=== PATIENT | male | born 1950 | race Caucasian/White ===

== ENCOUNTER 2019-06-25 17:53 | Emergency (ER) | payer OTHER ==
[2019-06-25] MEDS ORDERED: Sodium Chloride 0.9% 10 ML Syringe FLUSH PRN (18:22)
--- NOTE | 2019-06-25 18:22 | EDM.PDOC ---
ED HPI GENERAL MEDICAL PROBLEM - General Chief Complaint: Chest Pain Stated Complaint: CHEST PAIN Time Seen by Provider: 06/25/19 18:10 Source of Information: Reports: Patient History Limitations: Reports: No Limitations - History of Present Illness INITIAL COMMENTS - FREE TEXT/NARRATIVE: Patient presents to the ED for evaluation of chest pain. He states he has had a fever intermittently with near constant chest pain for the past 4 days. He states the chest pain waxes and wanes but never goes away completely. He states it got worse this afternoon with some shortness of breath at about 2:30. He went outside and felt as though it was easier to breath outside. His pain was worse at that time as well. He states he has had a fever the past few days too but did not measure his temperature with a thermometer. He was prescribed a medication for his blood pressure and was taking it until May when he ran out and has not refilled the medication. He thinks he was taking losarten. He denies cough, nausea, or vomiting. He denies recent travel or ill contacts. Denies smoking, last consumed ETOH on . Currently being treated for H. pylori and his primary care provider is at the [facility] in [place]. Onset Date: 06/22/19 Onset Time: 08:00 Duration: Getting Worse Location: Reports: Chest Quality: Reports: Ache Severity: Moderate Improves with: Reports: None Worsens with: Reports: None Associated Symptoms: Reports: Chest Pain, Fever/Chills, Shortness of Breath. Denies: Cough, Diaphoresis, Headaches, Nausea/Vomiting, Weakness Upper Chest Pain Score (Numeric/FACES): 2 - Related Data Allergies Allergy/AdvReac Type Severity Reaction Status Date / Time No Known Allergies Allergy Verified 01/29/13 15:56 Home Meds: Home Meds Aspirin [Halfprin] 81 mg PO DAILY 01/29/13 [History] Losartan [Cozaar] 50 mg PO DAILY 06/25/19 [History] atorvaSTATin [Lipitor] 20 mg PO DAILY 06/25/19 [History] ED ROS GENERAL - Review of Systems Review Of Systems: Comprehensive ROS is negative, except as noted in HPI. ED EXAM, GENERAL - Physical Exam Exam: See Below Exam Limited By: No Limitations General Appearance: Alert, WD/WN, Anxious, Mild Distress, Obese Eye Exam: Bilateral Eye: PERRL Ears: Normal External Exam Nose: Normal Inspection Throat/Mouth: Normal Inspection, Normal Oropharynx Head: Atraumatic, Normocephalic Neck: Normal Inspection, Supple, Non-Tender, Full Range of Motion Respiratory/Chest: No Respiratory Distress, Lungs Clear, Normal Breath Sounds, No Accessory Muscle Use Cardiovascular: Regular Rate, Rhythm Extremities: Normal Range of Motion, Normal Capillary Refill Neurological: Alert, Oriented Psychiatric: Normal Affect, Normal Mood Skin Exam: Warm, Dry, Intact EKG INTERPRETATION EKG Date: 06/25/19 Time: 18:06 Rhythm: NSR Rate (Beats/Min): 94 [place]: Normal P-Wave: Present QRS: Normal ST-T: Normal QT: Normal Comparison: NA - No Prior EKG Course - Vital Signs Last Recorded V/S: Last Vital Signs Temp 36.6 C 06/25/19 19:18 Pulse 76 06/25/19 19:18 Resp 20 06/25/19 19:18 BP 161/99 H 06/25/19 19:24 Pulse Ox 96 06/25/19 19:18 - Orders/Labs/Meds Orders: Active Orders 24 hr Category Date Time Status EKG Documentation Completion [RC] ASDIRECTED Care 06/25/19 18:23 Active Aspirin Med 06/25/19 18:30 Active 162 mg PO DAILY Sodium Chloride 0.9% [Saline Flush] Med 06/25/19 18:22 Active 10 ml FLUSH ASDIRECTED PRN Saline Lock Insert [OM.PC] Stat Oth 06/25/19 18:22 Ordered Medication Orders Aspirin (Aspirin) 162 mg PO DAILY [facility] Last Admin: 06/25/19 18:14 Dose: 162 mg Sodium Chloride (Saline Flush) 10 ml FLUSH ASDIRECTED PRN PRN Reason: Keep Vein Open Last Admin: 06/25/19 19:25 Dose: 10 ml Labs: Laboratory Tests 06/25/19 06/25/19 Range/Units 18:22 18:22 WBC 10.3 (4.0-11.0) K/uL RBC 5.05 (4.50-6.50) M/uL Hgb 15.3 (13.0-18.0) g/dL Hct 43.3 (40.0-54.0) % MCV 86 (76-96) fL MCH 30.3 (27.0-32.0) pg MCHC 35.3 H (31.0-35.0) g/dL RDW 13.0 (11.0-16.0) % Plt Count 200 (150-400) K/uL MPV 9.6 (6.0-10.0) fL Neut % (Auto) 68.1 (45.0-70.0) % Lymph % (Auto) 22.9 (20.0-40.0) % [place] % (Auto) 8.4 (3.0-10.0) % Eos % (Auto) 0.3 L (1.0-5.0) % Baso % (Auto) 0.3 (0.0-0.5) % Neut # (Auto) 6.99 (2.00-7.50) K/uL Lymph # (Auto) 2.35 (1.50-4.00) K/uL [place] # (Auto) 0.86 H (0.20-0.80) K/uL Eos # (Auto) 0.03 L (0.04-0.40) K/uL Baso # (Auto) 0.03 (0.02-0.10) K/uL Sodium 137 (136-145) mmol/L Potassium 3.4 L (3.5-5.1) mmol/L Chloride 100 (98-107) mmol/L Carbon Dioxide 26.0 (21.0-32.0) mmol/L Anion Gap 14.4 (5.0-15.0) mmol/L BUN 13 (8-26) mg/dL Creatinine 0.88 (0.70-1.30) mg/dL Est Cr Clr Drug Dosing TNP Estimated GFR (MDRD) > 60 (>60) MLS/MIN BUN/Creatinine Ratio 14.8 (6-25) Glucose 103 H (74-100) mg/dL Calcium 9.2 (8.5-10.1) mg/dL Troponin I < 0.017 (0.000-0.060) ng/mL Meds: Medications Generic Name Dose Route Start Last Admin Trade Name Freq PRN Reason Stop Dose Admin Aspirin 162 mg 06/25/19 18:30 06/25/19 18:14 Aspirin PO 162 mg DAILY HIWOT Administration Sodium Chloride 10 ml 06/25/19 18:22 06/25/19 19:25 Saline Flush FLUSH 10 ml ASDIRECTED PRN Administration Keep Vein Open Discontinued Medications Generic Name Dose Route Start Last Admin Trade Name Juliet PRN Reason Stop Dose Admin Labetalol HCl 20 mg 06/25/19 19:00 06/25/19 19:00 Normodyne IVPUSH 06/25/19 19:01 20 mg ONETIME ONE Administration Protocol Nitroglycerin 0.4 mg 06/25/19 18:24 06/25/19 18:14 Nitrostat SL 06/25/19 18:25 0.4 mg ONETIME ONE Administration - Re-Assessments/Exams Free Text/Narrative Re-Assessment/Exam: 06/25/19 19:28 This patient presented with chest pain with greater than 8 hours duration. Initial laboratory and imaging tests have come back normal without progression of symptoms or other new concerning symptoms. He is very hypertensive and did have some response to labetalol while in the ED. There is no clinical, laboratory, or radiographic evidence of pulmonary embolism, aortic dissection, pneumonia, pneumothorax or cardiac ischemia. Other etiologies of chest pain could include chest wall source, esophageal spasm or GI source, pleuritis, referred pain, etc. I have no suspicion of unstable angina at this point and would therefore not admit nor administer heparin. I discussed the need for a stress test and he states he will discuss this with his PCP at the [facility] in [place]. I am also going to restart his losartan. He will be given 3-25 mg tablets to use over the weekend with a paper prescription to be filled on Friday. The patient agrees with the plan and all questions were answered. Departure - Departure Time of Disposition: 19:50 Disposition: Home, Self-Care 01 Condition: Good Clinical Impression: Hypertension, Chest pain Instructions: Nonspecific Chest Pain, Adult, [id number] Forms: ED Department Discharge Additional Instructions: Begin taking provided Losartan as instructed: 1 tablet by mouth daily, beginning on June 25. Fill written prescription for additional Losartan at your regular pharmacy on Friday as well and continue taking as prescribed. Follow up with regular provider when able and ask for stress test to be scheduled. Monitor blood pressure once daily at home and bring readings to your regular appointment with regular provider. Call with any questions. Sepsis Event Note - Focused Exam Vital Signs: Vital Signs Temp Pulse Resp BP BP Pulse Ox 06/25/19 19:24 161/99 H 06/25/19 19:18 36.6 C 76 20 162/105 H 96 06/25/19 18:14 217/123 H 06/25/19 18:05 36.6 C 88 20 207/131 H 96 Date Exam was Performed: 06/25/19 Time Exam was Performed: 20:12 - My Orders Last 24 Hours: My Active Orders 06/25/19 18:22 Sodium Chloride 0.9% [Saline Flush] 10 ml FLUSH ASDIRECTED PRN Saline Lock Insert [OM.PC] Stat 06/25/19 18:23 EKG Documentation Completion [RC] ASDIRECTED 06/25/19 18:30 Aspirin 162 mg PO DAILY - Assessment/Plan Last 24 Hours: My Active Orders 06/25/19 18:22 Sodium Chloride 0.9% [Saline Flush] 10 ml FLUSH ASDIRECTED PRN Saline Lock Insert [OM.PC] Stat 06/25/19 18:23 EKG Documentation Completion [RC] ASDIRECTED 06/25/19 18:30 Aspirin 162 mg PO DAILY
[2019-06-25] MEDS ORDERED: Nitroglycerin 0.4 MG Tab.SL SL ONE (18:24)
[2019-06-25] MEDS ORDERED: Aspirin 81 MG Tab.Chew PO SCH (18:30)
[2019-06-25] MEDS ORDERED: Labetalol 100 MG/20 ML MDV IVPUSH ONE (19:00)
[2019-06-25 20:35] VITALS: BP 155/98; PULSE 74
== END 2019-06-25 19:54 | disposition home or self-care (01) ==
LOC: LB.ED 17:53
DX: R07.9 Chest pain, unspecified (principal); I10 Essential (primary) hypertension; Z79.82 Long term (current) use of aspirin; Z79.899 Other long term (current) drug therapy
CPT/HCPCS: 36415; 80048; 84484; 85025; 93005; 96374; 99284; 99285; A9270; J3490

== ENCOUNTER 2020-03-25 12:42 | Emergency (ER) | payer OTHER ==
[2020-03-25] MEDS ORDERED: GI Cocktail Oral Solution 30 ML PO ONE (13:08)
--- NOTE | 2020-03-25 13:21 | EDM.PDOC ---
ED HPI GENERAL MEDICAL PROBLEM - General Chief Complaint: Abdominal Pain Stated Complaint: stomach pain Time Seen by Provider: 03/25/20 13:10 Source of Information: Reports: Patient History Limitations: Reports: No Limitations - History of Present Illness INITIAL COMMENTS - FREE TEXT/NARRATIVE: patient presented to the ER with a c/o epigastric discomfort for several days. has been persistent for 2 days. Non radiating and not related to food or activities. h/o recent diagnosis of H.Pylori for which he was treated with Abx and PPI. Denies N/V or GI symptoms. Discomfort is 4-5/10. Has been taking Pepto-bismuth but no changes of symptoms. Also admits that he has been taking Ibuprofen for pain but it hasn't helped. No cough, SOB or CP. reports that he recently underwent a stress test in Jan - was negative for cardiac problems no h/o gall bladder stones. Has normal BMs. Good appetite to food Denies ETOH consumption - Related Data Allergies Allergy/AdvReac Type Severity Reaction Status Date / Time No Known Allergies Allergy Verified 01/29/13 15:56 Home Meds: Home Meds Aspirin [Halfprin] 81 mg PO DAILY 01/29/13 [History] Losartan [Cozaar] 50 mg PO DAILY 06/25/19 [History] atorvaSTATin [Lipitor] 20 mg PO DAILY 06/25/19 [History] Pantoprazole [ProTONIX Granules] 40 mg PO DAILY #28 packet 03/25/20 [Rx] Past Medical History - Past Health History Medical/Surgical History: Denies Medical/Surgical History HEENT History: Reports: Cataract Gastrointestinal History: Reports: Other (See Below) Other Gastrointestinal History: Testing for H pylori at [place], history of nausea in am's - Infectious Disease History Infectious Disease History: Reports: Chicken Pox, Measles, Mumps Social & Family History - Caffeine Use Caffeine Use: Reports: Coffee ED ROS GENERAL - Review of Systems Review Of Systems: Comprehensive ROS is negative, except as noted in HPI. Constitutional: Reports: No Symptoms HEENT: Reports: No Symptoms Respiratory: Reports: No Symptoms Cardiovascular: Reports: No Symptoms Endocrine: Reports: No Symptoms GI/Abdominal: Reports: Abdominal Pain. Denies: Anorexia, Decreased Appetite Musculoskeletal: Reports: No Symptoms Skin: Reports: No Symptoms Neurological: Reports: No Symptoms Psychiatric: Reports: No Symptoms ED EXAM, GI/ABD - Physical Exam Exam: See Below Exam Limited By: No Limitations General Appearance: Alert, WD/WN, No Apparent Distress Eyes: Bilateral: Normal Appearance Respiratory/Chest: No Respiratory Distress, Lungs Clear, Normal Breath Sounds Cardiovascular: Normal Peripheral Pulses GI/Abdominal Exam: Normal Bowel Sounds, Soft, No Distention, Tender (mild epigastric ) Back Exam: Normal Inspection Extremities: Normal Inspection Course - Orders/Labs/Meds Orders: Active Orders 24 hr Category Date Time Status EKG Documentation Completion [RC] ASDIRECTED Care 03/25/20 13:08 Active Labs: Laboratory Tests 03/25/20 03/25/20 Range/Units 13:20 13:20 WBC 10.5 (4.0-11.0) K/uL RBC 4.89 (4.50-6.50) M/uL Hgb 14.9 (13.0-18.0) g/dL Hct 42.8 (40.0-54.0) % MCV 88 (76-96) fL MCH 30.5 (27.0-32.0) pg MCHC 34.8 (31.0-35.0) g/dL RDW 13.2 (11.0-16.0) % Plt Count 220 (150-400) K/uL MPV 9.3 (6.0-10.0) fL Neut % (Auto) 67.8 (45.0-70.0) % Lymph % (Auto) 24.9 (20.0-40.0) % [place] % (Auto) 6.5 (3.0-10.0) % Eos % (Auto) 0.5 L (1.0-5.0) % Baso % (Auto) 0.3 (0.0-0.5) % Neut # (Auto) 7.15 (2.00-7.50) K/uL Lymph # (Auto) 2.62 (1.50-4.00) K/uL [place] # (Auto) 0.69 (0.20-0.80) K/uL Eos # (Auto) 0.05 (0.04-0.40) K/uL Baso # (Auto) 0.03 (0.02-0.10) K/uL Sodium 141 (136-145) mmol/L Potassium 3.3 L (3.5-5.1) mmol/L Chloride 103 (98-107) mmol/L Carbon Dioxide 28.6 (21.0-32.0) mmol/L Anion Gap 12.7 (5.0-15.0) mmol/L BUN 10 D (8-26) mg/dL Creatinine 1.00 (0.70-1.30) mg/dL Est Cr Clr Drug Dosing 73.00 mL/min Estimated GFR (MDRD) > 60 (>60) MLS/MIN BUN/Creatinine Ratio 10.0 (6-25) Glucose 129 H (74-100) mg/dL Calcium 8.8 (8.5-10.1) mg/dL Total Bilirubin 0.8 (0.0-1.0) mg/dL AST 20 (15-37) U/L ALT 36 (12-78) U/L Alkaline Phosphatase 104 (46-116) U/L Troponin I 0.018 (0.000-0.060) ng/mL Total Protein 7.0 (6.4-8.2) g/dL Albumin 3.9 (3.4-5.0) g/dL Globulin 3.1 (2.2-4.2) g/dL Albumin/Globulin Ratio 1.3 (0.8-2.0) Lipase 147 (73-393) U/L Meds: Medications Discontinued Medications Generic Name Dose Route Start Last Admin Trade Name Freq PRN Reason Stop Dose Admin Al Hydroxide/Mg Hydroxide 30 ml 03/25/20 13:08 03/25/20 13:45 Gi Cocktail PO 03/25/20 13:09 30 ml ONETIME ONE Administration - Re-Assessments/Exams Free Text/Narrative Re-Assessment/Exam: 03/25/20 13:57 EKG WNL labs - no e/o leukocytosis and normal liver function, but mild hypokalemia GI cocktail was given with significant improvement in symptoms Departure - Departure Time of Disposition: 13:58 Disposition: Home, Self-Care 01 Condition: Good Clinical Impression: Peptic ulcer, Hypokalemia - Discharge Information *PRESCRIPTION DRUG MONITORING PROGRAM REVIEWED*: Not Applicable *COPY OF PRESCRIPTION DRUG MONITORING REPORT IN PATIENT MATTY: Not Applicable Prescriptions: Pantoprazole [ProTONIX Granules] 40 mg PO DAILY #28 packet Forms: ED Department Discharge Additional Instructions: - recommend to stop taking NSAIDs/ Ibuprofen for now - take omeprazole as prescribed - follow up with the PCP next week as needed - return to the ER if symptoms got worse or any concerns - My Orders Last 24 Hours: My Active Orders 03/25/20 13:08 EKG Documentation Completion [RC] ASDIRECTED - Assessment/Plan Last 24 Hours: My Active Orders 03/25/20 13:08 EKG Documentation Completion [RC] ASDIRECTED
[2020-03-25 14:05] VITALS: BP 150/73; PULSE 96
== END 2020-03-25 14:30 | disposition home or self-care (01) ==
LOC: LB.ED 12:42
DX: K27.9 Peptic ulcer, site unspecified, unspecified as acute or chronic, without hemorrhage or perforation (principal); E87.6 Hypokalemia
CPT/HCPCS: 36415; 80053; 83690; 84484; 85025; 93005; 99283; 99284-25; A9270-GY

== ENCOUNTER 2020-07-09 16:15 | Emergency (ER) | payer OTHER ==
[2020-07-09] MEDS ORDERED: GI Cocktail Oral Solution 30 ML PO ONE (16:20)
--- NOTE | 2020-07-09 16:41 | EDM.PDOC ---
ED HPI GENERAL MEDICAL PROBLEM - General Chief Complaint: Gastrointestinal Problem Stated Complaint: EPIGASTRIC PAIN Time Seen by Provider: 07/09/20 16:20 Source of Information: Reports: Patient, RN History Limitations: Reports: No Limitations - History of Present Illness INITIAL COMMENTS - FREE TEXT/NARRATIVE: 69 year old male with PMH HTN, hyperlipidemia, Hpylori presents with epigastric and RUQ pain (that does not radiate)that has been ongoing for several months. Was in clinic last week and told to use maalox for the pain, he went to the pharmacy and has been taking an equivalent without relief. The pain increases about 1 hour after eating anything. Denies any CP, SOB, back pain, urinary issues, fever, or rashes. - Related Data Allergies Allergy/AdvReac Type Severity Reaction Status Date / Time No Known Allergies Allergy Verified 01/29/13 15:56 Home Meds: Home Meds Aspirin [Halfprin] 81 mg PO DAILY 01/29/13 [History] Losartan [Cozaar] 50 mg PO DAILY 06/25/19 [History] atorvaSTATin [Lipitor] 20 mg PO DAILY 06/25/19 [History] Pantoprazole [ProTONIX Granules] 40 mg PO DAILY #28 packet 03/25/20 [Rx] Past Medical History - Past Health History Medical/Surgical History: Denies Medical/Surgical History HEENT History: Reports: Cataract Gastrointestinal History: Reports: Other (See Below) Other Gastrointestinal History: Testing for H pylori at [place], history of nausea in am's - Infectious Disease History Infectious Disease History: Reports: Chicken Pox, Measles, Mumps Social & Family History - Family History Family Medical History: No Pertinent Family History - Caffeine Use Caffeine Use: Reports: Tea ED ROS GENERAL - Review of Systems Review Of Systems: Comprehensive ROS is negative, except as noted in HPI. ED EXAM, GI/ABD - Physical Exam Exam: See Below Exam Limited By: No Limitations General Appearance: Alert, No Apparent Distress Eyes: Bilateral: Normal Appearance Ears: Normal External Exam, Hearing Grossly Normal Nose: Normal Inspection, No Blood Throat/Mouth: Normal Inspection, Normal Lips, Normal Voice Head: Atraumatic Neck: Normal Inspection, Non-Tender, Full Range of Motion Respiratory/Chest: No Respiratory Distress, Lungs Clear, Normal Breath Sounds, No Accessory Muscle Use, Chest Non-Tender Cardiovascular: Normal Peripheral Pulses, Regular Rate, Rhythm, No Edema, No JVD, No Murmur GI/Abdominal Exam: Normal Bowel Sounds, Soft, Tender (Male) Exam: Deferred Rectal (Males) Exam: Deferred Back Exam: Normal Inspection, Full Range of Motion Extremities: Normal Inspection, Normal Range of Motion, Non-Tender, Normal Capillary Refill Neurological: Alert, Oriented, Normal Cognition, Normal Gait, No Motor/Sensory Deficits Psychiatric: Normal Affect, Normal Mood Skin Exam: Warm, Dry, Intact, Normal Color, No Rash Lymphatic: No Adenopathy Course - Orders/Labs/Meds Orders: Active Orders 24 hr Category Date Time Status EKG Documentation Completion [RC] ASDIRECTED Care 07/09/20 16:36 Active Abdomen Pelvis w Cont [CT] Stat Exams 07/09/20 16:35 Taken Iopamidol [Isovue-300 (61%)] Med 07/09/20 17:15 Active 100 ml IV . DIRECTED EKG 12 Lead [EK] Routine Ther 07/09/20 16:35 Ordered Medication Orders Iopamidol (Iopamidol 612 Mg/Ml 100 Ml Bottle) 100 ml IV . DIRECTED HIWOT Last Admin: 07/09/20 17:40 Dose: 100 ml Documented by: RENEA Labs: Laboratory Tests 07/09/20 07/09/20 07/09/20 Range/Units 16:50 16:50 16:50 WBC 9.8 (4.0-11.0) K/uL RBC 5.00 (4.50-6.50) M/uL Hgb 15.3 (13.0-18.0) g/dL Hct 43.2 (40.0-54.0) % MCV 86 (76-96) fL MCH 30.6 (27.0-32.0) pg MCHC 35.4 H (31.0-35.0) g/dL RDW 13.0 (11.0-16.0) % Plt Count 220 (150-400) K/uL MPV 9.2 (6.0-10.0) fL Neut % (Auto) 65.4 (45.0-70.0) % Lymph % (Auto) 26.2 (20.0-40.0) % [place] % (Auto) 7.7 (3.0-10.0) % Eos % (Auto) 0.5 L (1.0-5.0) % Baso % (Auto) 0.2 (0.0-0.5) % Neut # (Auto) 6.38 (2.00-7.50) K/uL Lymph # (Auto) 2.56 (1.50-4.00) K/uL [place] # (Auto) 0.75 (0.20-0.80) K/uL Eos # (Auto) 0.05 (0.04-0.40) K/uL Baso # (Auto) 0.02 (0.02-0.10) K/uL Sodium 139 (136-145) mmol/L Potassium 3.6 (3.5-5.1) mmol/L Chloride 100 (98-107) mmol/L Carbon Dioxide 29.6 (21.0-32.0) mmol/L Anion Gap 13.0 (5.0-15.0) mmol/L BUN 6 L D (8-26) mg/dL Creatinine 0.98 (0.70-1.30) mg/dL Est Cr Clr Drug Dosing TNP Estimated GFR (MDRD) > 60 (>60) MLS/MIN BUN/Creatinine Ratio 6.1 (6-25) Glucose 111 H (74-100) mg/dL Calcium 9.5 (8.5-10.1) mg/dL Total Bilirubin 1.3 H D (0.0-1.0) mg/dL AST 23 (15-37) U/L ALT 34 (12-78) U/L Alkaline Phosphatase 126 H (46-116) U/L Troponin I < 0.017 (0.000-0.060) ng/mL Total Protein 7.7 (6.4-8.2) g/dL Albumin 4.2 (3.4-5.0) g/dL Globulin 3.5 (2.2-4.2) g/dL Albumin/Globulin Ratio 1.2 (0.8-2.0) Lipase 97 D (73-393) U/L Meds: Medications Generic Name Dose Route Start Last Admin Trade Name Freq PRN Reason Stop Dose Admin Iopamidol 100 ml 07/09/20 17:15 07/09/20 17:40 Iopamidol 612 Mg/Ml 100 Ml Bottle IV 100 ml . DIRECTED HIWOT Administration Discontinued Medications Generic Name Dose Route Start Last Admin Trade Name Freq PRN Reason Stop Dose Admin Sodium Chloride 50 ml 07/09/20 17:14 07/09/20 17:40 Sodium Chloride 0.9% 50 Ml Sdv FLUSH 07/09/20 17:15 50 ml ONETIME ONE Administration Departure - Departure Time of Disposition: 18:25 Disposition: 20 Condition: Good Clinical Impression: Epigastric abdominal pain of unknown etiology - Discharge Information *PRESCRIPTION DRUG MONITORING PROGRAM REVIEWED*: Not Applicable *COPY OF PRESCRIPTION DRUG MONITORING REPORT IN PATIENT MATTY: Not Applicable Instructions: Abdominal Pain, Adult, [id number] Forms: ED Department Discharge Additional Instructions: It is unclear what is causing your pain. Your EKG, labs and CT scan were unremarkable today. Continue maalox as directed. Try eating small amounts of bland food. Follow up with your PMD this week. Return to ED for any increased or new concerning symptoms. - My Orders Last 24 Hours: My Active Orders 07/09/20 16:35 Abdomen Pelvis w Cont [CT] Stat EKG 12 Lead [EK] Routine 07/09/20 16:36 EKG Documentation Completion [RC] ASDIRECTED 07/09/20 17:15 Iopamidol [Isovue-300 (61%)] 100 ml IV . DIRECTED - Assessment/Plan Last 24 Hours: My Active Orders 07/09/20 16:35 Abdomen Pelvis w Cont [CT] Stat EKG 12 Lead [EK] Routine 07/09/20 16:36 EKG Documentation Completion [RC] ASDIRECTED 07/09/20 17:15 Iopamidol [Isovue-300 (61%)] 100 ml IV . DIRECTED
[2020-07-09] MEDS ORDERED: Sodium Chloride 0.9% 50 ML SDV FLUSH ONE (17:14)
[2020-07-09] MEDS ORDERED: Iopamidol 612 MG/ML 100 ML Bottle IV SCH (17:15)
--- NOTE | 2020-07-09 18:28 | PCM.EKG ---
#1 Interpretation EKG Date: 07/09/20 Time: 18:15 Rhythm: NSR [place]: Normal P-Wave: Present QRS: Normal ST-T: Normal QT: Normal
[2020-07-09 18:46] VITALS: BP 174/107; PULSE 78
--- NOTE | 2020-07-10 09:23 | CT ---
Date of Service: 07/09/20 Clinical Data: epigastric, RUQ pain ENHANCED ABDOMEN AND PELVIC CT: Multislice acquisition through the abdomen and pelvis with IV, but without oral contrast was performed. No priors. The lung bases are clear. The heart size is normal. There are mild coronary artery calcifications. The liver is normal size with homogeneous attenuation. No focal hepatic lesions. The gallbladder appears normal. No biliary duct dilatation. There is diffuse gastric wall thickening. This is probable related to nondistention. Gastritis or an infiltrating process should be considered. The spleen appears normal. The pancreas appears normal. The right and left adrenal appear normal. The right and left kidneys enhance symmetrically. There are 2 benign appearing cysts projecting from the cortex of the left kidney. The kidneys otherwise appear normal. No hydronephrosis or hydroureter. There is a small amount of fluid within the bladder . There is apparent diffuse bladder wall thickening. This is probably related to nondistention. Cystitis should be considered. The prostate is enlarged. There are calcifications within the prostate consistent with chronic prostatitis. The appendix is not dilated. No evidence of appendicitis. There is mild diverticulosis of the descending and sigmoid colon. No evidence of diverticulitis. No free air. No free fluid. No dilated loops of bowel. No adenopathy. No aortic aneurysm or dissection. There is a small fat containing umbilical hernia. There is degenerative disk disease at multiple levels in the lower thoracic and lumbar spine. No other significant findings. [id number] [facility]
== END 2020-07-09 18:39 | disposition home or self-care (01) ==
LOC: LB.ED 16:15
DX: R10.13 Epigastric pain (principal); R10.11 Right upper quadrant pain; Z79.82 Long term (current) use of aspirin
CPT/HCPCS: 36415; 74177; 80053; 83690; 84484; 85025; 93005; 99283; 99284-25; A9270-GY; Q9967

== ENCOUNTER 2020-08-10 11:24 | Day surgery (SDC) | payer OTHER ==
[~2020-08-10 11:24] MED LIST: Sodium Chloride 0.9% 1,000 ML IV SCH
[2020-08-10] MEDS ORDERED: Propofol 200 MG/20 ML SDV ONE (14:45)
[2020-08-10 15:07] VITALS: BP 155/99; PULSE 91
--- NOTE | 2020-08-10 21:12 | OR ---
DATE OF OPERATION: 08/10/2020 SURGEON: Sloan Mobley MD PREOPERATIVE DIAGNOSIS: Epigastric pain. POSTOPERATIVE DIAGNOSIS: Epigastric pain. PROCEDURE: EGD with biopsy. ANESTHESIA: Local with MAC. ESTIMATED BLOOD LOSS: Minimal. COMPLICATIONS: None. INDICATION FOR THE PROCEDURE: The patient is a 69-year-old male with a previous history of H pylori, who has been having epigastric pain, worse with eating. He has recently been treated for H pylori as of 4 months ago. Otherwise, continues to have symptoms. He has had previous EGD 2-3 years ago as well. He is brought to the OR today for EGD with biopsy. DESCRIPTION OF PROCEDURE: Informed consent was obtained from the patient. The patient was taken to the operating room and placed on the table in left lateral decubitus position. He did have Cetacaine spray as well as a small dose of IV sedation. Esophagogastroscope was then advanced through the mouth and directed toward the duodenum. The duodenum was reached and was normal. Gastric antrum was normal. No ulcers. No inflammation. Cold forceps biopsy was taken for H pylori testing. Retroflexion performed in the stomach was also otherwise unremarkable. The scope was then withdrawn into the esophagus. Distal esophagus was normal. No signs of esophagitis. No strictures present there. The scope was then fully withdrawn. The remainder of the esophagus was also otherwise unremarkable. The scope was then fully removed. FINDINGS: Normal-appearing EGD. RECOMMENDATIONS: We will follow up on H pylori biopsies. If negative for H pylori, we would recommend further workup for gallbladder. Apparently, CT scan has been normal. Apparently, an ultrasound performed was normal. If that is the case, we would recommend HIDA scan to assess for gallbladder functionality. MICHAEL/MARISEL /[id number]
== END 2020-08-10 15:26 | disposition home or self-care (01) ==
LOC: LB.SDS 11:24
PROVIDERS: ATTEND Surgery
DX: K29.50 Unspecified chronic gastritis without bleeding (principal); I10 Essential (primary) hypertension; E78.5 Hyperlipidemia, unspecified
CPT/HCPCS: 88305; 88342; J2704; J7030

== ENCOUNTER 2023-02-01 17:55 | Emergency (ER) | payer OTHER ==
[2023-02-01] MEDS ORDERED: hydrOXYzine HCl 25 MG Tab PO ONE (18:16)
[2023-02-01 18:40] LABS: BASOPHILS ABSOLUTE AUTO 0.01 K/uL (0.02-0.10); BASOPHILS PERCENT AUTO 0.1 % (0.0-0.5); EOSINOPHILS ABSOLUTE AUTO 0.01 K/uL (0.04-0.40); EOSINOPHILS PERCENT AUTO 0.1 % (1.0-5.0); HEMATOCRIT 43.4 % (40.0-54.0); HEMOGLOBIN 15.7 g/dL (13.0-18.0); LYMPHOCYTES ABSOLUTE AUTO 0.92 K/uL (1.50-4.00); LYMPHOCYTES PERCENT AUTO 12.3 % (20.0-40.0); MEAN CORPUSCULAR HEMOGLOBIN 31.2 pg (27.0-32.0); MEAN CORPUSCULAR HGB CONC 36.2 g/dL (31.0-35.0); MEAN CORPUSCULAR VOLUME 86 fL (76-96); MEAN PLATELET VOLUME 9.5 fL (6.0-10.0); MONOCYTES ABSOLUTE AUTO 0.93 K/uL (0.20-0.80); MONOCYTES PERCENT AUTO 12.4 % (3.0-10.0); NEUTROPHILS PERCENT AUTO 75.1 % (45.0-70.0); PLATELET COUNT,PLT 153 K/uL (150-400); RED BLOOD CELL COUNT 5.03 M/uL (4.50-6.50); RED CELL DISTRIBUTION WIDTH 13.2 % (11.0-16.0); WHITE BLOOD CELL COUNT,WBC 7.5 K/uL (4.0-11.0)
[2023-02-01] MEDS ORDERED: cloNIDine 0.1 MG Tab PO ONE (18:57)
[2023-02-01 19:03] LABS: A/G RATIO 1.3 (0.8-2.0); ANION GAP 13.4 mmol/L (5.0-15.0); BILIRUBIN TOTAL 0.8 mg/dL (0.0-1.0); BUN/CREATININE RATIO 13.8 (6-25); CALCIUM 8.9 mg/dL (8.5-10.1); CARBON DIOXIDE,CO2 26.9 mmol/L (21.0-32.0); CREATININE 0.87 mg/dL (0.70-1.30); EST CRCL DRUG DOSING (CG) 80.41 mL/min; MAGNESIUM 1.8 mg/dL (1.8-2.4); POTASSIUM,K 3.3 mmol/L (3.5-5.1); PROTEIN TOTAL,TP 7.2 g/dL (6.4-8.2); TROPONIN I HIGH SENSITIVITY 24.8 pg/ml (<=60.4)
[2023-02-01] MEDS ORDERED: Potassium Chloride 20 MEQ Tab.ER PO ONE (19:09)
[2023-02-01 19:52] VITALS: BP 165/114; PULSE 106
== END 2023-02-01 19:40 | disposition home or self-care (01) ==
LOC: LB.ED 17:55
DX: E87.6 Hypokalemia (principal); F41.9 Anxiety disorder, unspecified; I10 Essential (primary) hypertension; E78.00 Pure hypercholesterolemia, unspecified; Z79.82 Long term (current) use of aspirin; Z79.899 Other long term (current) drug therapy
CPT/HCPCS: 36415; 80053; 83735; 84484; 85025; 85379; 99284; A9270

== ENCOUNTER 2023-02-06 18:49 | Emergency (ER) | payer MEDICARE, OTHER ==
[2023-02-06 19:21] VITALS: BP 167/102; PULSE 75
[2023-02-06] MEDS ORDERED: hydrOXYzine HCl 25 MG Tab ONE (19:26)
[2023-02-06] MEDS ORDERED: hydrOXYzine HCl 25 MG Tab PO SCH (19:30)
== END 2023-02-06 19:32 | disposition home or self-care (01) ==
LOC: LB.ED 18:49
DX: F41.9 Anxiety disorder, unspecified (principal); I10 Essential (primary) hypertension; E78.00 Pure hypercholesterolemia, unspecified; Z79.899 Other long term (current) drug therapy
CPT/HCPCS: 99283; A9270-GY

== ENCOUNTER 2023-02-13 11:43 | Day surgery (SDC) | payer OTHER ==
[~2023-02-13 11:43] MED LIST changes: +Metoclopramide 10 MG/2 ML SDV IV PRN
[2023-02-13 15:31] VITALS: BP 130/92; PULSE 78
== END 2023-02-13 16:05 | disposition home or self-care (01) ==
LOC: LB.SDS 11:43
PROVIDERS: ATTEND Surgery
DX: Z12.11 Encounter for screening for malignant neoplasm of colon (principal); D12.0 Benign neoplasm of cecum; D12.2 Benign neoplasm of ascending colon; D12.3 Benign neoplasm of transverse colon; K57.30 Diverticulosis of large intestine without perforation or abscess without bleeding; I10 Essential (primary) hypertension
CPT/HCPCS: 88305; J2704; J7030

== ENCOUNTER 2023-12-10 12:46 | Emergency (ER) | payer OTHER ==
[2023-12-10 13:28] LABS: BASOPHILS ABSOLUTE AUTO 0.02 K/uL (0.02-0.10); BASOPHILS PERCENT AUTO 0.2 % (0.0-0.5); EOSINOPHILS ABSOLUTE AUTO 0.04 K/uL (0.04-0.40); EOSINOPHILS PERCENT AUTO 0.4 % (1.0-5.0); HEMATOCRIT 41.5 % (40.0-54.0); HEMOGLOBIN 14.6 g/dL (13.0-18.0); LYMPHOCYTES ABSOLUTE AUTO 2.15 K/uL (1.50-4.00); LYMPHOCYTES PERCENT AUTO 19.5 % (20.0-40.0); MEAN CORPUSCULAR HEMOGLOBIN 31.4 pg (27.0-32.0); MEAN CORPUSCULAR HGB CONC 35.2 g/dL (31.0-35.0); MEAN CORPUSCULAR VOLUME 89 fL (76-96); MEAN PLATELET VOLUME 10.6 fL (6.0-10.0); MONOCYTES ABSOLUTE AUTO 1.01 K/uL (0.20-0.80); MONOCYTES PERCENT AUTO 9.2 % (3.0-10.0); NEUTROPHILS ABSOLUTE AUTO 7.79 K/uL (2.00-7.50); NEUTROPHILS PERCENT AUTO 70.7 % (45.0-70.0); PLATELET COUNT,PLT 174 K/uL (150-400); RED BLOOD CELL COUNT 4.65 M/uL (4.50-6.50); RED CELL DISTRIBUTION WIDTH 13.6 % (11.0-16.0)
[2023-12-10 13:56] LABS: A/G RATIO 1.3 (0.8-2.0); ALBUMIN 3.7 g/dL (3.4-5.0); ANION GAP 11.5 mmol/L (5.0-15.0); BILIRUBIN TOTAL 0.9 mg/dL (0.0-1.0); BUN/CREATININE RATIO 24.2 (6-25); CALCIUM 8.8 mg/dL (8.5-10.1); CARBON DIOXIDE,CO2 28.3 mmol/L (21.0-32.0); CREATININE 0.99 mg/dL (0.70-1.30); EST CRCL DRUG DOSING (CG) 69.64 mL/min; POTASSIUM,K 3.8 mmol/L (3.5-5.1); PROTEIN TOTAL,TP 6.6 g/dL (6.4-8.2); TROPONIN I HIGH SENSITIVITY 16.7 pg/ml (<=60.4)
[2023-12-10 13:58] LABS: APPEARANCE,URINE CLEAR (CLEAR); BILIRUBIN,URINE NEGATIVE (NEGATIVE); COLOR,URINE YELLOW; GLUCOSE,URINE NEGATIVE (NEGATIVE); KETONES,URINE TRACE mg/dL (NEGATIVE); LEUKOCYTE ESTERASE,URINE NEGATIVE (NEGATIVE); NITRITE,URINE NEGATIVE (NEGATIVE); OCCULT BLOOD,URINE MODERATE (NEGATIVE); PROTEIN,URINE NEGATIVE (NEGATIVE); UROBILINOGEN,URINE 0.2 E.U./dL (0.2-1.0)
[2023-12-10 14:02] LABS: MUCUS,URINE MODERATE /HPF; WBC,URINE 0-5 /HPF
[2023-12-10 15:09] VITALS: BP 159/97; PULSE 81
== END 2023-12-10 14:35 | disposition home or self-care (01) ==
LOC: LB.ED 12:46
DX: R07.9 Chest pain, unspecified (principal); E78.00 Pure hypercholesterolemia, unspecified; I10 Essential (primary) hypertension; Z87.891 Personal history of nicotine dependence; Z79.82 Long term (current) use of aspirin; Z79.899 Other long term (current) drug therapy
CPT/HCPCS: 36415; 80053; 81001; 84484; 85025; 93005; 93010; 99284; 99285

== ENCOUNTER 2024-04-05 08:30 | Emergency (ER) | payer MEDICARE, OTHER ==
[2024-04-05] MEDS: Ketorolac 15 MG/ML SDV IVPUSH ONE (09:34)
[2024-04-05 09:51] LABS: APPEARANCE,URINE CLEAR (CLEAR); BILIRUBIN,URINE NEGATIVE (NEGATIVE); COLOR,URINE YELLOW; GLUCOSE,URINE NEGATIVE (NEGATIVE); KETONES,URINE NEGATIVE (NEGATIVE); LEUKOCYTE ESTERASE,URINE NEGATIVE (NEGATIVE); NITRITE,URINE NEGATIVE (NEGATIVE); OCCULT BLOOD,URINE TRACE-LYSED (NEGATIVE); PROTEIN,URINE 30 mg/dL (NEGATIVE); UROBILINOGEN,URINE 0.2 E.U./dL (0.2-1.0)
[2024-04-05 09:52] LABS: AMORPHOUS SEDIMENT,URINE FEW /HPF; HYALINE CASTS,URINE OCCASIONAL /HPF; MUCUS,URINE FEW /HPF; SQUAMOUS EPITHELIAL CELLS,UR FEW /HPF; WBC,URINE 0-5 /HPF
[2024-04-05 10:14] VITALS: PULSE 83
[2024-04-05 12:39] VITALS: BP 132/98
[2024-04-05] MEDS ORDERED: Sodium Chloride 0.9% 10 ML Syringe FLUSH PRN (13:26)
[2024-04-07] MEDS: HYDROmorphone 1 MG/ML Syringe IVPUSH ONE (08:22)
== END 2024-04-05 11:35 | disposition home or self-care (01) ==
LOC: LB.ED 08:30
DX: N45.1 Epididymitis (principal); R31.29 Other microscopic hematuria; I10 Essential (primary) hypertension; E78.00 Pure hypercholesterolemia, unspecified; E66.9 Obesity, unspecified; Z79.82 Long term (current) use of aspirin; Z79.899 Other long term (current) drug therapy; Z90.49 Acquired absence of other specified parts of digestive tract; Z68.33 Body mass index [BMI] 33.0-33.9, adult
CPT/HCPCS: 74176; 81001; 96374; 99283; 99284-25; J1885